=== PATIENT | male | born 1965 | race Caucasian/White ===

== ENCOUNTER 2019-01-07 02:26 | Outpatient (CLI) | payer OTHER, SELFPAY ==
[2019-01-07 09:51] LABS: BUN 14 mg/dL (7-18); CREATININE 0.91 mg/dL (0.70-1.30); Calculated LDL 96 mg/dL; Chloride 105 mmol/L (98-107); Cholesterol 177 mg/dL (50-200); Glucose 91 mg/dL (70-100); HDL Cholesterol 72 mg/dL (40-60); Potassium 4.4 mmol/L (3.5-5.1); Sodium 139 mmol/L (136-145); Triglyceride 48 mg/dL (30-150)
== END 2019-01-07 02:46 ==
PROVIDERS: PCP Family Medicine; Visit Provider Family Medicine
DX: Z00.00 Encounter for general adult medical examination without abnormal findings (principal); Z13.220 Encounter for screening for lipoid disorders; Z13.228 Encounter for screening for other metabolic disorders
CPT/HCPCS: 36415; 80048; 80061

== ENCOUNTER 2019-01-29 01:22 | Outpatient (CLI) | payer OTHER, SELFPAY ==
--- NOTE | 2019-01-29 10:50 | DI.MRI_ITS ---
EXAM: MR LOWER JOINT LT WO CLINICAL HISTORY: CHRONIC PAIN LEFT KNEE. TECHNIQUE: Multiplanar multisequence MRI was performed. COMPARISON: No exams were available for comparison FINDINGS: There is articular cartilage thinning of the central portion of the patellar articular cartilage with subchondral cystic changes noted as well. Slight irregularity of the trochlear articular cartilage contour noted as well. Abnormal signal of trochlear cartilage also noted. No other significant bony signal abnormality is seen. There appears to have been an ACL reconstructi on with intact reconstructed ligament. Mild articular cartilage thinning and irregularity of medial and lateral tibiofemoral joints noted. Presumed chronic complex tear of the body and posterior horn of the medial meniscus noted. Lateral meniscus appears intact. No significant collateral ligament i njury seen. IMPRESSION: 1. Intact ACL reconstruction 2. Degenerative articular cartilage changes of patellofemoral joint, particularly involving the cent ral portion the patellar articular surface. 3. Presumably chronic complex medial meniscal tear. 4. Mild degenerative articular cartilage changes of medial and lateral tibiofemoral joints.
== END 2019-01-29 01:42 ==
PROVIDERS: PCP Family Medicine; Visit Provider Family Medicine
DX: M25.562 Pain in left knee (principal); M17.12 Unilateral primary osteoarthritis, left knee; S83.242A Other tear of medial meniscus, current injury, left knee, initial encounter
CPT/HCPCS: 73721

== ENCOUNTER 2021-04-02 09:29 | Emergency (ER) | payer OTHER, BC, SELFPAY ==
[2021-04-02 09:39] VITALS: BP 142/87; PULSE 70; RESP 16; TEMP 36; O2SAT 99
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
--- NOTE | 2021-04-02 10:30 | DI.RAD_ITS ---
Exam(s) XR RIBS LT W PA LAT CHEST EXAM: XR RIBS LT W PA LAT CHEST CLINICAL HISTORY: fall skiing. TECHNIQUE: 2D digital imaging was performed. COMPARISON: CR RIGHT SHOULDER COMPLETE from 08/29/2017 FINDINGS: Heart size normal. Mediastinum not widened. Lungs are clear. No infiltrates nor pleural effusions. No pneumothorax. No compression fractures evident. Additional views of the left rib cage reveal a nondisplaced fracture of the left 7th rib. IMPRESSION: Left 7th rib fracture. Lungs are clear. No pneumothorax. DATA REPOSITORY: RADIATION DOSE DELIVERED:
--- NOTE | 2021-04-02 10:30 | DI.CT_ITS ---
Exam(s) CT CERVICAL SPINE WO EXAM: CT CERVICAL SPINE WO CLINICAL HISTORY: fall, numbness in RUE. TECHNIQUE: Imaging Protocol: Axial computed tomography images with coronal and sagittal reformatted images were created and reviewed COMPARISON: No exams were available for comparison FINDINGS: CERVICAL SPINE: There is an encircling wire around the spinous process is of C6 and C7 with some fusion at this level . There is a nondisplaced fracture of the right lamina of C6 evident.. This extends to the articular s urface of the ipsilateral facet joint but there is no facet malalignment at this level nor elsewhere in the cervical spinal column. No listhesis at this level. C1 and odontoid are intact as is C2. Some degenerative changes evident in the right facet joint at C 2-3 level. Milder degenerative changes in facet joints at the other levels evident. No jumped facet s. There is annular bulging at 3-4 level. There is no significant facet joint malalignment. No significant osseous lesions evident. IMPRESSION: Right-sided fracture C6 level which extends to the articular surface of the facet joint but without a step nor facet malalignment at this level. No other fractures identified in the cervical vertebrae. Fusion wire posteriorly at C6-7 level noted C6-7 fusion evident. Report called by myself to the ER provider . RADIATION DOSE DELIVERED: 401.23mGy.cm Total DLP DATA REPOSITORY: All CT scans at this facility are submitted to the National Radiology Data Registry (NRDR) Dose Index Registry (DIR) with the [employer] (A[employer]). RADIATION OPTIMIZATION: All CT scans at this facility use at least one of these dose optimization te chniques: automated exposure control; mA and/or kV adjustment per patient size (includes targeted exa ms where dose is matched to clinical indication); or iterative reconstruction.
--- NOTE | 2021-04-02 12:30 | DI.MRI_ITS ---
Exam(s) MR CERVICAL SPINE WO/W EXAM: MR CERVICAL SPINE WO/W CLINICAL HISTORY: right sided fracture, increased numbness in RUE TECHNIQUE: Multiplanar multisequence MRI of the cervical spine was performed without and with intra venous contrast. Contrast injected was 16 mL Dotarem COMPARISON: Cervical spine CT scan from earlier today was reviewed FINDINGS: There is some artifact posteriorly from the cerclage wires around the transverse process is of C6 and C7. CERVICOMEDULLARY JUNCTION: Intact with no evidence of cerebellar tonsillar ectopia. No obvious abnor mality of the odontoid process. No evidence of Chiari 1 malformation. CERVICAL SPINAL CORD: There is no abnormal signal in the cervical spinal cord and no evidence of foca l cord atrophy nor focal cord swelling. OSSEOUS:Please note that there is a fracture in the right lamina of C6 as seen on today's CT scan. T his nondisplaced fracture is less evident on the MRI study . There is minimal if any bone edema, giv en that this is apparently a subacute fracture. INDIVIDUAL LEVELS: C2-3: No disc herniation nor central canal stenosis. Right-sided facet arthropathy evident. Milder facet changes on the left side. Mild right-sided foraminal stenosis. Central canal dimensions at th is level are within normal limits. C3-4: Chronic decreased disc height loss, as well as anterior osseous lipping.There is a posterolater al right disc protrusion at this level which extends posteriorly 2 millimeters and is approximately 8 millimeters wide. Indents the thecal sac but not the cord at this level. There is mild foraminal s tenosis. Central canal dimensions lower normal. C4-5: Preserved disc height. No disc herniation. No central canal stenosis. Moderate bilateral fac et arthropathy and there is moderate bilateral foraminal stenosis noted at this level. C5-6: Preserved disc height. Bilateral small Luschka joint osteophytes. There is no prominent disc herniation. Some degenerative change both facet joints. Mild foraminal stenosis bilaterally. C6-7: Normal disc height. Normal hydration signal. No disc herniation at this level. No central ca nal stenosis. There is fusion posteriorly across the facet joints. No obvious foraminal stenosis. No central canal stenosis at this level. C7-T1: No disc herniation nor central canal stenosis. No facet arthropathy.No foraminal stenosis. IV CONTRAST: No abnormal intraosseous enhancement evident. Also no abnormal enhancement in the epidu ral space nor in cervical spinal cord. IMPRESSION: 1. At C3-4 level there is anterior osseous lipping and some disc space narrowing. In addition to a r ight-sided Luschka joint osteophyte there is also a posterolateral right disc protrusion which extend s posteriorly 2 millimeters and is approximately 7-8 millimeters wide. 2. Please note there is a fracture on the right side of C6 arch, best seen on the CT scan earlier tolissette cervantes and difficult to visualize on this MRI study. 3. Fusion wires noted posteriorly at C6-7 level. There is indeed fusion across both facet joints at this level. DATA REPOSITORY:
[2021-04-02] MEDS: Gadoterate meglumine 20 ML VIAL 10 ML IVP (13:22)
[2021-04-02] MEDS: Normal Saline Flush 10 ML SYR IVP (13:23)
[2021-04-02 14:47] VITALS: BP 145/96; PULSE 78; TEMP 36.6; O2SAT 98
[2021-04-02 17:06] VITALS: BP 133/96; PULSE 79; RESP 16; TEMP 36.7; O2SAT 98
== END 2021-04-02 17:05 | disposition home or self-care (01) ==
PROVIDERS: Emergency Provider Registered Nurse Emergency; PCP Nurse Practitioner
DX: S12.591A Other nondisplaced fracture of sixth cervical vertebra, initial encounter for closed fracture (principal); M54.12 Radiculopathy, cervical region; S22.32XA Fracture of one rib, left side, initial encounter for closed fracture; V00.321A Fall from snow-skis, initial encounter
CPT/HCPCS: 99285; 71046; 71100; 72125; 72156; 99284

== ENCOUNTER 2021-09-29 16:39 | Outpatient (REF) | payer BC, SELFPAY | END 2021-09-29 16:40 | disposition home or self-care (01) | LOC: LBN 16:39 | PROVIDERS: PCP Nurse Practitioner; Visit Provider Physician Assistant | DX: J02.9 Acute pharyngitis, unspecified (principal) | CPT/HCPCS: 87070 ==

== ENCOUNTER 2022-11-23 17:05 | Inpatient (IN) | payer BC, SELFPAY ==
[2022-11-23] VITALS (19 sets, daily range): BP systolic 140–157; BP diastolic 84–96; PULSE 56–69; RESP 18; TEMP 36.9–37.3; O2SAT 92–99
--- NOTE | 2022-11-23 17:15 | RT.EKG_ITS ---
APPROVED REPORT Exam: Resting ECG Reason for Exam: Trauma Patient Location: E HR:55 bpm ECG Measurements Heart Rate 55 AXIS NH 193 P 0 QRSd 96 QRS 15 QT 422 T 28 QTc 405 Conclusion Sinus bradycardia...rate< 60
--- NOTE | 2022-11-23 17:15 | DI.CT_ITS ---
Exam(s) CT CHEST/ABD/PEL W EXAM: CT CHEST/ABD/PEL W CLINICAL HISTORY: Trauma. TECHNIQUE: Imaging Protocol: Axial computed tomography images with coronal and sagittal reformatted images were created and reviewed CONTRAST MATERIAL: Intravenous: Omnipaque 350 Contrast volume:100 ml Oral: None COMPARISON: No exams were available for comparison FINDINGS: CHEST: OSSEOUS: There is a displaced comminuted fracture involving the lateral half of the left clavicle. There is no dislocation of the AC joint. No fracture of the a chromium. There are multiple calcific ations in the subacromial space at this level which are corticated and do not appear to be related to the acute trauma here. There are degenerative changes also evident in the ipsilateral glenohumeral joint without an acute fracture of the humeral head-neck evident. There is a displaced fracture of the posterior aspect of the left 8th rib. There are also minimally displaced fractures of the ipsilateral left 2nd, 3rd, 5th, and 6th ribs.. LUNGS: There is infiltrate in the posterior aspect of the left lower lobe which is probably lung cont usion given the overlying 8th rib fracture. No pleural effusion nor pneumothorax. Milder infiltrate is noted in the posterior basal segment of the right lower lobe, also without pleural effusion or pn eumothorax. There are no obvious right rib fractures. No pneumothorax on either side. No significa nt focal findings in the trachea and mainstem bronchi. There is a thin-walled bulla in the superior segment of the left lower lobe, measuring 1.7 x 1.6 cm and not containing fluid. MEDIASTINUM: No evidence of sternal fracture or mediastinal hematoma. No hilar nor mediastinal adeno july evident. Visualized thyroid unremarkable. CARDIAC: Heart size is normal. There is no pericardial effusion.Thoracic aorta is intact. ABDOMEN: There is no ascites. No evidence of mesenteric nor bowel wall hematoma. LIVER: No evidence of liver laceration nor other incidental findings in the liver. GALLBLADDER/BILIARY: No obvious gallbladder pathology. CBD is not dilated. PANCREAS: There are few focal calcifications in the body of the pancreas. Subtle density abnormality also noted at this level. This require workup. Head and neck of the pancreas appear unremarkable. Small focal hypodensity in the pancreatic tail noted which measures 3 x 2 mm, possibly focal slight prominence of the pancreatic duct at this level. SPLEEN: Normal size. No laceration. Splenic and portal veins are patent. ADRENALS: There are no significant adrenal masses. KIDNEYS: No evidence of renal laceration or subcapsular hematoma. No cysts nor solid masses. No cain culi. No hydronephrosis.. ABDOMINAL AORTA: Intact. No aneurysm. No dissection. No para-aortic hematoma. Aortoiliac segments also intact. LYMPH NODES: There is no retroperitoneal nor paraaortic adenopathy. ABDOMINAL WALL: No evidence of significant anterior abdominal wall nor inguinal hernia. GI: Multiple fluid-filled and mildly dilated small bowel loops-probable ileus. No free air. PELVIS: LYMPH NODES: There is no intrapelvic nor inguinal adenopathy. GI: No evidence of appendicitis.No evidence of sigmoid diverticulitis. URINARY BLADDER: Intact. Mildly distended. No intraluminal clots. No obvious mass. REPRODUCTIVE: Prostate size upper normal. Seminal vesicles unremarkable. OSSEOUS: No evidence of pelvic nor hip fracture. SI joints unremarkable. No vertebral fractures. IMPRESSION: 1. Comminuted displaced fracture of the lateral half of the left clavicle. The AC joint is not dislo cated. Degenerative changes in the ipsilateral left glenohumeral joint as well as multiple calcific densities in the subacromial space which are not related to the acute trauma. 2. Multiple ipsilateral left rib fractures with significantly displaced fracture of the posterior asp ect of the left 8th rib and additional multiple nondisplaced fractures of the lateral aspects of the left 2nd, 3rd, 5th, and 6th ribs. There is no pneumothorax. 3. Posterior left lung infiltrate/contusion. Lesser infiltrate in the opposite-right lung base. No pneumothorax. No pleural effusions. 4. Multiple slightly prominent fluid-filled small bowel loops including terminal ileum; probable ileu s pattern. There is mild haziness of the mesentery but no distinct focal mesenteric nor bowel wall h ematoma evident and there is no ascites. 5. Incidental finding in the body of the pancreas a possible concern. There are focal calcification s in the mid body of the pancreas and very subtle focal hypodensity in this region. Cannot exclude v ajit subtle incidental mass. Recommend follow-up pancreatic imaging. First read by [facility]. Discussed by phone with Dr. Mcdaniel 11/25/2022 8:30 a.m. RADIATION DOSE DELIVERED: 1345.55 mGy.cm Total DLP DATA REPOSITORY: All CT scans at this facility are submitted to the National Radiology Data Registry (NRDR) Dose Index Registry (DIR) with the [employer] ([employer]). RADIATION OPTIMIZATION: All CT scans at this facility use at least one of these dose optimization te chniques: automated exposure control; mA and/or kV adjustment per patient size (includes targeted exa ms where dose is matched to clinical indication); or iterative reconstruction.
--- NOTE | 2022-11-23 17:18 | DI.CT_ITS ---
Exam(s) CT HEAD CERVICAL SPINE WO EXAM: CT HEAD CERVICAL SPINE WO CLINICAL HISTORY: Trauma. TECHNIQUE: Imaging Protocol: Axial computed tomography images with coronal and sagittal reformatted images were created and reviewed COMPARISON: CT CT CERVICAL SPINE WO from 04/02/2021 FINDINGS: BRAIN: There are no skull fractures nor fluid in the visualized paranasal sinuses. There is no evidence of intracranial hemorrhage, mass effect, or shift of midline structures. There are no extra-axial fluid collections. The ventricles are not enlarged or shifted and there is no blo od within the ventricular system nor within the basal cisterns. CERVICAL SPINE: There is no evidence of fracture nor listhesis. No significant prevertebral soft tissue swelling. Fusion wire posteriorly around the spinous process is of C6 and C7. Some fusion is evident at the bi lateral facet joints at this level. Also some fusion anteriorly with preserved disc space height at this level. Some degenerative disc disease seen at multiple levels above this. Significant facet arthropathy not ed at C2-3, more so right side.. There is no significant facet joint malalignment. No significant osseous lesions evident. IMPRESSION: No acute intracranial findings on this noninfused CT scan of the brain. No evidence of cervical spine fracture, malalignment, nor acute compromise of the cervical spinal can al. Posterior fusion wire C6-7 as described above. This was also evident on prior study of March 2021 . At that time this patient had a nondisplaced fracture of the right lamina of C6. RADIATION DOSE DELIVERED: 1,551.74mGy.cm Total DLP DATA REPOSITORY: All CT scans at this facility are submitted to the National Radiology Data Registry (NRDR) Dose Index Registry (DIR) with the [employer] (ACR). RADIATION OPTIMIZATION: All CT scans at this facility use at least one of these dose optimization te chniques: automated exposure control; mA and/or kV adjustment per patient size (includes targeted exa ms where dose is matched to clinical indication); or iterative reconstruction.
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
[2022-11-23] MEDS: HYDROmorphone 2 MG/ML SYR 1 MG IVP ×3 (17:29→22:15)
[2022-11-23] MEDS: Ondansetron 4 MG/2 ML VIAL IVP (17:31)
[2022-11-23 17:34] LABS: Abs Immature Grans 0.05 10^3/uL (0.0-0.06); Absolute Basophil Count 0.06 10^3/uL (0.0-0.2); Absolute Eosinophil Count 0.07 10^3/uL (0.0-0.7); Absolute Lymphocyte Count 1.12 10^3/uL (1.2-3.4); Absolute Monocyte Count 0.53 10^3/uL (0.1-0.8); Absolute Neutrophil Count 6.67 10^3/uL (1.2-6.7); Basophils % 0.7; Eosinophils % 0.8; HCT 43.6 % (40.0-50.0); HGB 14.6 g/dL (13.5-17.5); Immature Grans % 0.6; Lymphocytes % 13.2; MCH 31.5 pg (27.0-33.0); MCHC 33.5 % (32.0-36.0); MCV 94 fL (80-95); Monocytes % 6.2; Neutrophils % 78.5; Platelet Count 237 10^3/uL (130-400); RBC 4.63 10^6/uL (4.36-5.78); RDW 12.3 % (11.8-14.1); RDW-SD 42.7 fL
--- NOTE | 2022-11-23 17:45 | DI.RAD_ITS ---
Exam(s) XR PORTABLE CHEST AP EXAM: XR PORTABLE CHEST AP CLINICAL HISTORY: Trauma TECHNIQUE: 2D digital imaging was performed. COMPARISON: CR XR RIBS LT W PA LAT CHEST from 04/02/2021 FINDINGS: LUNGS: Clear. No pleural abnormality seen. HEART: Normal size. AORTA: Normal diameter. BONES: Comminuted, displaced left clavicle fracture. Question nondisplaced fractures of the lateral left 3rd and 4th ribs. Soft tissues: Unremarkable. IMPRESSION: Left clavicle fracture. Question of nondisplaced left 3rd and 4th rib fractures. No evidence of pne umothorax or pulmonary contusion. DATA REPOSITORY: RADIATION DOSE DELIVERED:
[2022-11-23 17:48] LABS: ALT 26 U/L (16-63); AST 24 U/L (15-37); Albumin 4.2 g/dL (3.4-5.0); Alkaline Phosphatase 80 U/L (46-116); Anion Gap 8.1 mmol/L (3-11); BUN 15 mg/dL (7-18); Bilirubin, Total 0.5 mg/dL (0.2-1.0); CO2 28.9 mmol/L (21.0-32.0); Calcium 8.7 mg/dL (8.5-10.1); Chloride 103 mmol/L (98-107); Estimated GFR 87.24 (mL/min/1.73m2); Glucose 134 mg/dL (74-106); Lipase 23 U/L (16-77); Magnesium 2.1 mg/dL (1.8-2.4); Potassium 3.7 mmol/L (3.5-5.1); Sodium 140 mmol/L (136-145); Total Protein 7.9 g/dL (6.4-8.2); Troponin I < 50 ng/L (<or=60)
[2022-11-23] MEDS: Normal Saline 1,000 ML 150 ML IV ×2 (17:52→21:08)
[2022-11-23] MEDS: Normal Saline - Diluent 50 ML VIAL IJ (18:27)
[2022-11-23] MEDS: Normal Saline Flush 10 ML SYR IVP (18:28)
[2022-11-23] MEDS: Omnipaque 350 MG/ML 100 ML BTL IJ (18:28)
--- NOTE | 2022-11-23 18:31 | DI.CT_ITS ---
Exam(s) CT THORACIC LUMBAR SPINE REC EXAM: CT THORACIC LUMBAR SPINE REC CLINICAL HISTORY: recon T and L spine, Trauma, Back pain TECHNIQUE: COMPARISON: CT CT CHEST/ABD/PEL W from 11/23/2022 FINDINGS: THORACIC SPINAL COLUMN: No evidence of acute fracture nor listhesis. Nonacute in mild wedge compress ion fracture of T5 and slight concavity of superior endplate of T3, also not acute appearing. No sig nificant disc space narrowing. No facet malalignment evident. Left-sided rib fractures as discussed on chest CT report. Also bilateral lower lobe infiltrates. No pneumothorax. LUMBOSACRAL SPINAL COLUMN: No evidence of acute fracture or listhesis. No pars defects. Chronic dis c space narrowing at L5-S1 level noted. Facet arthropathy L4-5 will. Also L3-4. Lucent bone lesion evident in the L5 vertebral body incidentally noted measuring 1.7 cm by 0.8 cm by 1.0 cm. This is n onexpansile and most probably benign as it exhibits a thin peripheral calcified rim. No associated c ortical breakthrough. IMPRESSION: No acute fractures of the thoracic and lumbosacral spinal columns. Nonacute findings at T3 and T5 levels as described above. Benign-appearing bone lesion in the L5 vertebral body incidentally noted.
--- NOTE | 2022-11-23 18:35 | DI.VRAD_ITS ---
PROCEDURE INFORMATION: Exam: XR Chest Exam date and time: 11/23/2022 5:58 PM Age: 57 years old Clinical indication: Other: Loss of vision left eye TECHNIQUE: Imaging protocol: Radiologic exam of the chest. Views: 1 view. COMPARISON: CR XR RIBS LT W PA LAT CHEST 04/02/2021 10:56 AM FINDINGS: Lungs: Unremarkable. No consolidation. Pleural spaces: Unremarkable. No pleural effusion. No pneumothorax. Heart/Mediastinum: Unremarkable. No cardiomegaly. Bones/joints: Comminuted and displaced midshaft left clavicle fracture. Possible minor fracture of the lateral 4th rib left-side.. IMPRESSION: 1. Clear lungs and pleural space. 2. Comminuted and displaced midshaft left clavicle fracture. 3. Possible minor fracture of the lateral aspect of the left 4th rib. Dictated and Authenticated by: Andrew Pena MD. Ordering:ELYSIA Callaway MD
[2022-11-23] MEDS: HYDROmorphone 2 MG/ML SYR 0.5 MG IVP (19:00)
--- NOTE | 2022-11-23 19:36 | NUR.NOTE ---
Nursing Note: Cleaned abrasion on patients left hip with normal saline and dressed it with bacitracin and a band aid.
--- NOTE | 2022-11-23 19:54 | DI.VRAD_ITS ---
PROCEDURE INFORMATION: Exam: CT Chest With Contrast; Diagnostic Exam date and time: 11/23/2022 7:14 PM Age: 57 years old Clinical indication: Injury or trauma; Fall; Generalized; Blunt trauma (contusions or hematomas) TECHNIQUE: Imaging protocol: Diagnostic computed tomography of the chest with contrast. Contrast material: OMNIPAQUE 350; Contrast volume: 100 ml; Contrast route: INTRAVENOUS (IV); COMPARISON: CR XR PORTABLE CHEST AP 11/23/2022 5:58 PM FINDINGS: Lungs: Bilateral posterior lung base atelectasis. No acute infiltrative disease. No lung contusion. Bronchiectasis consistent with COPD. Apical left lower lobe bulla. Pleural spaces: Minor left pleural effusion. No pneumothorax. Heart: Normal heart size. No pericardial effusion. No coronary artery atherosclerotic calcium visible. Lymph nodes: Unremarkable. No enlarged lymph nodes. Vasculature: Thoracic aorta is normal in course and caliber. Diaphragm: Small sliding hiatal hernia. No acute change. Bones/joints: Comminuted fracture of the distal left clavicle. Displaced. AC joint is in alignment. Glenohumeral joint on left side with joint fluid. Periarticular calcifications which could represent calcific tendinitis of the rotator cuff. Can not exclude intra-articular calcification such as synovial osteochondromas. Recommend clinical correlation. No acute fracture of the scapula or proximal humerus. Displaced posterior left 8th rib fracture. Series 5, image 36. No flail segment. Fracture of the anterolateral left 2nd and 3rd ribs without significant displacement. Nondisplaced fracture of the anterolateral left 5th rib and 6th ribs. Soft tissues: Unremarkable. IMPRESSION: 1. Distal left clavicle fracture with comminution and displacement. 2. Posterior bilateral lung atelectatic change. 3. Displaced posterior left 8th rib fracture. Multiple additional nondisplaced left lateral rib fractures at the 2nd, 3rd, 5th, and 6th ribs. 4. Minor left pleural effusion. No pneumothorax. 5. Left glenohumeral joint is in alignment. Calcifications in the region of the superior glenohumeral joint may represent ligamentous or tendinous calcifications from previous trauma or calcific tendinitis. Can not exclude intra-articular synovial osteochondromas. An MRI follow-up of the left shoulder is suggested on a nonemergent basis. PROCEDURE INFORMATION: Exam: CT Abdomen And Pelvis With Contrast Exam date and time: 11/23/2022 7:14 PM Age: 57 years old Clinical indication: Injury or trauma; Fall; Generalized; Blunt trauma (contusions or hematomas) TECHNIQUE: Imaging protocol: Computed tomography of the abdomen and pelvis with contrast. Contrast material: OMNIPAQUE 350; Contrast volume: 100 ml; Contrast route: INTRAVENOUS (IV); COMPARISON: CR XR PORTABLE CHEST AP 11/23/2022 5:58 PM FINDINGS: Liver: The liver is normal in size, contour and attenuation. Gallbladder and bile ducts: Normal. No calcified stones. No ductal dilation. Pancreas: Normal. No ductal dilation. Spleen: The spleen is normal in size, contour and attenuation. Adrenal glands: The adrenal glands are normal in size and contour bilaterally. Kidneys and ureters: The kidneys bilaterally are unremarkable. Normal attenutation. No hydronephrosis. No calculi. Stomach and bowel: Gastric morphology is unremarkable. No edema. No gastric outlet obstruction. Small sliding hiatal hernia. No acute change. Small bowel loops are normal in course and caliber. There is no mucosal edema or bowel wall thickening. No obstructive features. The colon contains formed fecal material. There is no bowel wall thickening. No inflammatory features. No obstruction. Appendix: No evidence of appendicitis. Intraperitoneal space: No free fluid. No free air. Vasculature: Unremarkable. No abdominal aortic aneurysm. Lymph nodes: Unremarkable. No enlarged lymph nodes. Urinary bladder: Urinary bladder is unremarkable in appearance. No wall thickening. No intravesicular calculi. No intravesicular gas. Reproductive: Unremarkable as visualized. Bones/joints: No pelvic fracture or diastasis. No hip fracture or dislocation. Lumbar spine degenerative disease. Soft tissues: Abdominal wall soft tissues are unremarkable. IMPRESSION: 1. No acute findings within the abdomen or pelvis. 2. Degenerative lumbar spine. Dictated and Authenticated by: Andrew Pena MD. Ordering:ELYSIA Callaway MD
--- NOTE | 2022-11-23 19:55 | DI.VRAD_ITS ---
PROCEDURE INFORMATION: Exam: CT Head Without Contrast Exam date and time: 11/23/2022 7:06 PM Age: 57 years old Clinical indication: Injury or trauma; Fall; Blunt trauma (contusions or hematomas); Consciousness not specified TECHNIQUE: Imaging protocol: Computed tomography of the head without contrast. Total images: [id number] COMPARISON: MR CERVICAL SPINE WO/W 04/02/2021 1:04 PM FINDINGS: Brain: No intra or extra axial bleed. No edema or mass effect. The central dillon structures and cortical ribbon are maintained. Cerebral ventricles: No hydrocephalus. Basal cisterns are patent. Paranasal sinuses: No mucosal thickening or fluid levels. Mastoid air cells: Mastoid air cells are clear. Orbital cavities: Punctate senescent scleral calcification versus old foreign body on the right. Bones/joints: No significant bony abnormality. No fracture. Soft tissues: Unremarkable. IMPRESSION: 1. No acute intracranial abnormality. 2. No intracerebral bleed. PROCEDURE INFORMATION: Exam: CT Cervical Spine Without Contrast Exam date and time: 11/23/2022 7:06 PM Age: 57 years old Clinical indication: Injury or trauma; Fall; Blunt trauma (contusions or hematomas); Consciousness not specified TECHNIQUE: Imaging protocol: Computed tomography of the cervical spine without contrast. COMPARISON: MR CERVICAL SPINE WO/W 04/02/2021 1:04 PM FINDINGS: Bones/joints: No acute fracture. No subluxation. Disc space narrowing at C3-C4 and C4-C5 associated with spondylotic central and foraminal stenosis. Wires involving posterior elements at C6 and C7. Fusion of the facets at that level. Spinal epidural space: No epidural hematoma. Auditory system: Cerumen left external auditory canal. Lungs: No apical pneumothorax. Soft tissues: Unremarkable. IMPRESSION: 1. No acute fracture. 2. Degenerative disc disease. Dictated and Authenticated by: Dequan Calzada MD. Ordering:ELYSIA Callaway MD
--- NOTE | 2022-11-23 19:59 | DI.VRAD_ITS ---
PROCEDURE INFORMATION: Exam: CT Thoracic Spine Without Contrast Exam date and time: 11/23/2022 7:14 PM Age: 57 years old Clinical indication: Injury or trauma; Fall; Blunt trauma (contusions or hematomas) TECHNIQUE: Imaging protocol: Computed tomography of the thoracic spine without contrast. COMPARISON: CT HEAD CERVICAL SPINE WO 11/23/2022 7:06 PM FINDINGS: Bones/joints: No acute compression fractures. Multilevel degenerative thoracic spine changes. Mild dextroscoliosis. Chronic appearing mild anterior wedging of T6. Small Schmorl's node on the inferior aspect of T9. Paravertebral soft tissues are unremarkable. Displaced posterior left 9th rib fracture. Displaced comminuted distal left clavicle fracture. Soft tissues: Paravertebral soft tissues are unremarkable. Lungs: Bilateral posterior lung base atelectasis. Pleural spaces: Minor left pleural effusion. IMPRESSION: 1. No acute thoracic spine fracture or dislocation. 2. Old mild anterior wedge compression fracture of T6. 3. Displaced posterior left 9th rib fracture. 4. Left clavicle fracture. PROCEDURE INFORMATION: Exam: CT Lumbar Spine Without Contrast Exam date and time: 11/23/2022 7:14 PM Age: 57 years old Clinical indication: Injury or trauma; Fall; Blunt trauma (contusions or hematomas) TECHNIQUE: Imaging protocol: Computed tomography of the lumbar spine without contrast. COMPARISON: No relevant prior studies available. FINDINGS: Bones/joints: No acute fracture. Normal alignment. No significant disc bulge or herniation. Moderate spinal stenosis changes at L3-L4 and L4-L5.. No significant neural foraminal narrowing. Severe degenerative disc space narrowing at L5-S1. Multilevel severe facet degeneration. Soft tissues: Unremarkable. IMPRESSION: 1. Degenerative lumbar spine changes. 2. No acute fracture or dislocation. Dictated and Authenticated by: Andrew Pena MD. Ordering:ELYSIA Callaway MD
[2022-11-23] MEDS: Melatonin 3 MG TAB 5 MG PO (22:13)
[2022-11-23] MEDS: Gabapentin 300 MG CAP PO (22:14)
[2022-11-23] MEDS: Ketorolac 30 MG/ML VIAL IVP (22:14)
[2022-11-23] MEDS: Cyclobenzaprine 10 MG TAB 5 MG PO (22:14)
[2022-11-24] VITALS: PULSE 63
[2022-11-24] MEDS: Cyclobenzaprine 10 MG TAB 5 MG PO ×2 (03:35→10:13)
[2022-11-24] MEDS: HYDROmorphone 2 MG/ML SYR 1 MG IVP ×2 (03:35→10:24)
[2022-11-24 03:52] VITALS: BP 126/78; PULSE 68; RESP 18; TEMP 37; O2SAT 97
[2022-11-24 07:02] VITALS: PULSE 59
[2022-11-24] MEDS: Gabapentin 300 MG CAP PO (07:46)
--- NOTE | 2022-11-24 08:00 | DI.RAD_ITS ---
Exam(s) XR CHEST 2V PA LATERAL EXAM: XR CHEST 2V PA LATERAL CLINICAL HISTORY: re-eval. TECHNIQUE: 2D digital imaging was performed. COMPARISON: CR,XR XR PORTABLE CHEST AP from 11/23/2022 FINDINGS: 2 views: Heart size is normal. The mediastinum is not widened. There is now some infiltrate in the right lower lobe posterior basal segment and a small right pleura l effusion. There also appears to be possible developing infiltrate in the left lower lobe, similar location. Left clavicle fracture again noted. IMPRESSION: Bilateral lower lobe infiltrates now evident. Also small right pleural effusion. Left clavicle fracture. DATA REPOSITORY: RADIATION DOSE DELIVERED:
--- NOTE | 2022-11-24 09:03 | W.ANESPRE ---
General Info Date of Service Date Performed: 11/24/22 Height: 5 ft 9 in Weight: 60 kg Body Mass Index (BMI): 19.5 Meds Allergies and Home Medications Allergies Allergy/AdvReac Type Severity Reaction Status Date / Time No Known Allergies Allergy Unverified 11/23/22 17:20 Home Medication Medication Instructions Recorded mupirocin 2 % topical ointment 1 applic topical BID #22 grams 09/25/21 melatonin 5 mg capsule 5 mg PO HS PRN 08/28/22 cyclobenzaprine 5 mg tablet 5 mg PO HS PRN muscle spasm #15 09/03/22 tab-caps doxycycline hyclate 100 mg tablet 200 mg PO ONCE #2 tabs 09/03/22 magnesium 250 mg tablet 250 mg PO DAILY #90 tabs 09/03/22 tadalafil 20 mg tablet (Cialis) 20 mg PO DAILY PRN sexual activity 09/03/22 #30 tabs Current Visit Medications: Current Medications Generic Name Dose Route Start Last Admin Trade Name Freq PRN Reason Stop Dose Admin Acetaminophen 650 mg 11/23/22 21:35 Acetaminophen 325 Mg Tab PO Q4H PRN PRN Pain or Fever Albuterol Sulfate 2.5 mg 11/23/22 20:28 Albuterol 2.5 Mg/3 Ml Inh Soln Vial UPD Q2H PRN PRN Cyclobenzaprine HCl 5 mg 11/23/22 22:00 11/24/22 03:35 Cyclobenzaprine 10 Mg Tab PO 5 mg Q6H BEENA Administration Gabapentin 300 mg 11/23/22 22:00 11/24/22 07:46 Gabapentin 300 Mg Cap PO 300 mg TID BEENA Administration Hydromorphone HCl 1 mg 11/23/22 20:33 11/24/22 03:35 Hydromorphone 2 Mg/Ml Syr IVP 1 mg Q4H PRN PRN Administration IV Miscellaneous Supplies 1 each 11/23/22 17:30 Iv Access-Emergency Dept IV DIRECTED COUNT INCLUDES THE [facility] IV Miscellaneous Supplies 1 each 11/23/22 20:30 Iv Access-Emergency Dept IV DIRECTED COUNT INCLUDES THE [facility] Iohexol 100 ml 11/23/22 18:30 11/23/22 18:28 Omnipaque 350 Mg/Ml 100 Ml Btl IJ 12/23/22 23:59 100 ml DIRECTED COUNT INCLUDES THE [facility] Administration Ketorolac Tromethamine 30 mg 11/23/22 21:37 11/23/22 22:14 Ketorolac 30 Mg/Ml Vial IVP 11/28/22 21:36 30 mg Q6H PRN PRN Administration Pain Melatonin 5 mg 11/23/22 22:00 11/23/22 22:13 Melatonin 3 Mg Tab PO 5 mg HS BEENA Administration Ondansetron HCl 4 mg 11/23/22 20:28 Ondansetron 4 Mg/2 Ml Vial IVP Q4H PRN PRN Oxycodone HCl 5 mg 11/23/22 21:33 Oxycodone 5 Mg Tab PO Q6H PRN PRN Pain Sodium Chloride 0 ml 11/23/22 17:18 11/23/22 18:28 Normal Saline Flush 10 Ml Syr IVP 10 ml PRN PRN Administration Sodium Chloride 50 ml 11/23/22 18:30 11/23/22 18:27 Normal Saline - Diluent 50 Ml Vial IJ 50 ml .FOR DI USE BEENA Administration Sodium Chloride 0 ml 11/23/22 20:28 Normal Saline Flush 10 Ml Syr IVP PRN PRN PFSH Active Problems Active Problems: Problem Status Onset Code Trauma T14.90XA Multiple fractures of ribs of left side S22.42XA Closed displaced fracture of left clavicle S42.002A Pleural effusion on left J90 Anxiety and depression F41.9, F32.A Tendon nodule M67.90 Erectile dysfunction N52.9 Attention-deficit hyperactivity disorder, unspecified type 09/29/12 F90.9 Medical History Medical History Alcohol use Bunionette of right foot C6 cervical fracture 03/2021 Cervical radiculopathy at C6 03/2021 Incomplete rotator cuff tear or rupture of left shoulder, not specified as traumatic (11/03/15) Meralgia paresthetica Smokeless tobacco use Surgical History Surgical History ACHILLES REPAIR (~04/2013) RIGHT Arthroplasty of knee (~1986) History of arthroscopy of knee Rotator Cuff Repair (~1984) LEFT Spinal Fusion (~1984) C6 AND C7 FUSION Status post Achilles tendon repair Status post cervical spinal arthrodesis Status post rotator cuff repair Tobacco Smoking/Tobacco Use Status: Current every day Tobacco Type: smokeless tobacco Smokeless tobacco user: chewing tobacco and snus Passive smoking exposure: No Second hand exposure: No Alcohol Alcohol Intake: former Substance Use Substance use: Occasionally Substance use type: marijuana Vital Signs and Lab Results Vital Signs Most Recent Vital Signs in EMR: Most Recent Vital Signs Temp Pulse Resp BP Pulse Ox 37 C 59 L 18 126/78 97 11/24/22 03:52 11/24/22 07:02 11/24/22 03:52 11/24/22 03:52 11/24/22 03:52 Lab Results 11/23/22 17:15 11/23/22 17:15 Blood Type / Crossmatch: No Data to Display Complete Blood Count: White Blood Count 8.50 10^3/uL (4.4-10.8) 11/23/22 17:15 Red Blood Count 4.63 10^6/uL (4.36-5.78) 11/23/22 17:15 Hemoglobin 14.6 g/dL (13.5-17.5) 11/23/22 17:15 Hematocrit 43.6 % (40.0-50.0) 11/23/22 17:15 Platelet Count 237 10^3/uL (130-400) 11/23/22 17:15 Complete Metabolic Panel: Sodium 140 mmol/L (136-145) 11/23/22 17:15 Potassium 3.7 mmol/L (3.5-5.1) 11/23/22 17:15 Chloride 103 mmol/L (98-107) 11/23/22 17:15 Carbon Dioxide 28.9 mmol/L (21.0-32.0) 11/23/22 17:15 BUN 15 mg/dL (7-18) 11/23/22 17:15 Creatinine 1.0 mg/dL (0.70-1.30) 11/23/22 17:15 Est GFR (CKD-EPI 2020) 87.24 (mL/min/1.73m2) 11/23/22 17:15 Magnesium 2.1 mg/dL (1.8-2.4) 11/23/22 17:15 Calcium 8.7 mg/dL (8.5-10.1) 11/23/22 17:15 Albumin 4.2 g/dL (3.4-5.0) 11/23/22 17:15 Glucose 134 mg/dL (74-106) H 11/23/22 17:15 Liver Function Panel: Alanine Aminotransferase (ALT/SGPT) 26 U/L (16-63) 11/23/22 17:15 Aspartate Amino Transf (AST/SGOT) 24 U/L (15-37) 11/23/22 17:15 Coagulation Panel: No Data to Display Cardiac Panel: Troponin I < 50 ng/L (<or=60) 11/23/22 Arterial Blood Gas: No Data to Display Venous Blood Gas: No Data to Display Pancreas Panel: Lipase 23 U/L (16-77) 11/23/22 17:15 Thyroid Panel: No Data to Display Infectious Disease: No Data to Display Blood Cultures: No Data to Display Toxicology Panel: No Data to Display Anesthesia Assessment and Plan Anesthesia History Personal History: No History of Anesthesia Complications Family History: No Family History of Anesthesia Complications Exercise Tolerance Exercise Tolerance: Metabolic Equivalents>4 Pertinent Negatives Pertinent Negatives: No Symptoms of GERD Cardiac & Pulmonary Exam Cardiac Exam: Normal S1/S2 Heart Sounds Pulmonary Exam: Clear Bilateral Breath Sounds Implantable Cardiac Device Does patient have a Pacemaker or an ICD?: No Airway Exam Known Difficult Airway: No Mallampati Class: 1 Mouth Opening: Normal (> 3cm) Thyromental Distance: Greater than 3 cm Neck Range of Motion: Full ROM Neck Circumference: Normal Teeth Condition: Normal Dentition ASA Classification ASA Score: ASA 1 Emergency Case?: No NPO Status NPO Status: Full Stomach Anesthesia Plan Resuscitation Status: Full Code Anesthesia Technique: Primary Nerve Block Airway Planned: Natural Airway Monitors Used: Standard Monitors
[2022-11-24 09:05] VITALS: BMI 19.5
[2022-11-24 09:36] VITALS: PULSE 81
--- NOTE | 2022-11-24 09:45 | PDOC.CMIN ---
Date of service: 11/24/22 Time of Service: 09:45 Care Management Initial Assmt Initial Assessment REASON FOR HOSPITALIZATION:: multiple rib and clavicular fractures PREVIOUS FUNCTIONAL STATUS/SOCIAL/FAMILY SUPPORTS:: Shade lives in [place], [place]. 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 He is active and independent at baseline. ADVANCE DIRECTIVES:: none on file Has patient been provided with info about the portal/API?: Yes Did the patient sign up for the portal?: Yes CODE STATUS:: Full Code INSURANCE COVERAGE / FINANCIAL ISSUES:: [employer] [place] PRIMARY CARE PHYSICIAN:: Laura Solorzano POTENTIAL DISCHARGE NEEDS:: follow up with orthopedics, PCP and plan of care PATIENT/FAMILY EDUCATION NEEDS:: Review of discharge instructions, activity, limitations, follow up plan, discuss Ask Me Three ANTICIPATED BARRIERS TO DISCHARGE:: pain control TRANSPORTATION:: via private vehicle with family PLAN:: Anticipate Shade will discharge home with no new services. He will follow up with community providers and plan of care and transport with family. CM will follow and support discharge needs. PFSH All Active Problems (Updated 11/23/22 @ 20:38 by Cesia Rodriguez NP) Trauma (Acute) Multiple fractures of ribs of left side (Acute) Closed displaced fracture of left clavicle (Acute) Pleural effusion on left (Acute) Anxiety and depression (Chronic) Tendon nodule (Acute) Erectile dysfunction (Acute) Attention-deficit hyperactivity disorder, unspecified type (Chronic 09/29/12) On no ;medicines Medical History Alcohol use Bunionette of right foot C6 cervical fracture 03/2021 Cervical radiculopathy at C6 03/2021 Incomplete rotator cuff tear or rupture of left shoulder, not specified as traumatic (11/03/15) Meralgia paresthetica Smokeless tobacco use Surgical History ACHILLES REPAIR (~04/2013) RIGHT Arthroplasty of knee (~1986) History of arthroscopy of knee Rotator Cuff Repair (~1984) LEFT Spinal Fusion (~1984) C6 AND C7 FUSION Status post Achilles tendon repair Status post cervical spinal arthrodesis Status post rotator cuff repair Family History Mother Hypertension Father , age 62 Heart disease Stroke Sister No problems noted. Brother Alcohol abuse Depression Brother Alcohol abuse Brother Alcohol abuse Depression Substance abuse Son No problems noted. Son Asthma Social History Smoking/Tobacco Use Status: Current every day Tobacco Type: smokeless tobacco Tobacco: How many years used: 30 Smokeless tobacco user: chewing tobacco and snus Quit status: not considering quitting Second Hand Exposure: No Smoking risk assessment performed?: Yes Alcohol Intake: former Drug use: Occasionally Substance use type: marijuana Caregiver/Support person: No Household members: children Housing: house Communication Needs: None Do you need help understanding health information?: Rarely Pets and animals: Yes Pets and animals: cat(s) Sexually active: Yes Do you think of yourself as: straight/heterosexual Current gender identity: male What is your relationship status?: How often do you talk on the phone with friends or family?: once per week How often do you get together with friends or relatives?: once per week How often do you attend anglican or mormonism services?: decline to answer Do you belong to any clubs or organized social groups?: no Panel score (0-1 are the most socially isolated patients): 0 What type of physical activity do you participate in: bicycling and other Details: skiing Duration: 45-60 minutes/day Frequency: 5-6 times per week Ros/Episcopal: Spiritual Special ros needs: No Seatbelt use: always Helmet use: Yes Helmet use: always 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
--- NOTE | 2022-11-24 10:10 | ANES.NERVE_ITS ---
Nerve Block Single Injection Procedure Date and Time Date Performed: 11/24/22 Procedure Start: 09:38 Location Where Procedure Performed Procedure Location: Med/Surg (Room 215) Reason Performed: Acute Pain Management Pain Diagnosis: Rib Pain (Non-displaced rib fractures: T2, T3, T5 & T6. Displaced rib fracture: T8) Requesting Provider: Mary Mcdaniel Timeout Performed Timeout Performed: Yes Monitoring Used ECG, Blood Pressure and SpO2 Sterility Sterility: Hand Hygiene, Surgical Cap, Surgical Mask, Sterile Gloves, Eye Protection and Chlorhexidine Sedation Given During Procedure Sedation Given (Indicate Dose Given): No Sedation given Patient Mental Status Patient Mental Status: Awake Nerve Block 1st Nerve Block: Laterality: Left Block Type: Erector Spinae (Upper) (T5) Ultrasound Image Saved?: Yes Needle / Catheter Used: 100mm SonoPlex II Local Anesthetic Bolus (Indicate Dose Given): Lidocaine used for local infiltration of skin, Injected in 3-5ml increments after negative blood aspiration, Bupivacaine 0.25% Dose:: 0.25% (10cc), 25mg and Exparel Dose:: 1.3% (10cc), 133mg Additives (Indicate Dose Given): Epinephrine to make 1:200,000 (5mcg/ml) Dose:: Epi. 100mcg (5mcg/cc) Ultrasound: Sterile probe cover and gel used Nerve Stimulator: Not Used Paresthesia: None Procedure Tolerated: No Complications Procedure Outcome: Successful Performed By: Armando Bliss Other (not listed above): Massimo Jang CRNA 2nd Nerve Block: Laterality: Left Block Type: Erector Spinae (Upper) (T8) Ultrasound Image Saved?: Yes Needle / Catheter Used: 100mm SonoPlex II Local Anesthetic Bolus (Indicate Dose Given): Lidocaine used for local infiltration of skin, Injected in 3-5ml increments after negative blood aspiration, Bupivacaine 0.25% Dose:: 0.25%/5cc (12.5mg) and Exparel Dose:: 1.3%/10cc (133mg) Additives (Indicate Dose Given): Epinephrine to make 1:200,000 (5mcg/ml) Dose:: Epi. 75mcg (5mcg/cc) Ultrasound: Sterile probe cover and gel used Nerve Stimulator: Not Used Paresthesia: None Procedure Tolerated: No Complications Procedure Outcome: Successful Performed By: Armando Bliss Other (not listed above): Massimo Jang, PRIVATE DETECTIVE
[2022-11-24] MEDS: Ketorolac 30 MG/ML VIAL IVP (10:25)
[2022-11-24] MEDS: Normal Saline Flush 10 ML SYR IVP (10:25)
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
--- NOTE | 2022-11-24 11:08 | DI.VRAD_ITS ---
PROCEDURE INFORMATION: Exam: XR Chest Exam date and time: 11/24/2022 11:04 AM Age: 57 years old Clinical indication: Other: Re eval TECHNIQUE: Imaging protocol: Radiologic exam of the chest. Views: 2 views. COMPARISON: CT CHEST/ABD/PEL W 11/23/2022 7:14 PM FINDINGS: Lungs: No airspace disease or lung consolidation. Atelectasis present bilateral lung bases Pleural spaces: Blunting of the costophrenic angles consistent with small pleural effusions. Heart/Mediastinum: Unremarkable. No cardiomegaly. Bones/joints: Unremarkable. IMPRESSION: Bilateral lower lobe atelectasis. Dictated and Authenticated by: Lior Foster MD. Ordering:ELYSIA Callaway MD
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
[2022-11-24 11:31] VITALS: BP 133/94; PULSE 63; RESP 20; TEMP 36.8; O2SAT 96
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
== END 2022-11-24 12:45 | disposition home or self-care (01) | DRG 184 ==
LOC: ER 21:01 → MS 21:33
PROVIDERS: Admitting Provider Surgery; Emergency Provider Registered Nurse Emergency; PCP Nurse Practitioner Family; Visit Provider Surgery
DX: S22.42XA Multiple fractures of ribs, left side, initial encounter for closed fracture (principal); J90 Pleural effusion, not elsewhere classified; J98.11 Atelectasis; S42.022A Displaced fracture of shaft of left clavicle, initial encounter for closed fracture; W17.89XA Other fall from one level to another, initial encounter; Y93.55 Activity, bike riding; F41.8 Other specified anxiety disorders; F90.9 Attention-deficit hyperactivity disorder, unspecified type; Z98.1 Arthrodesis status; F17.290 Nicotine dependence, other tobacco product, uncomplicated; F12.90 Cannabis use, unspecified, uncomplicated
CPT/HCPCS: 36415; 74177; 80053; 83690; 93005; 96361; 96374; 96375; 99285; 70450; 71045; 71046; 71260; 72125; 83735; 84484; 85025; 93010; J0171; J1170; J1885; J2405; J3490

== ENCOUNTER 2022-11-26 10:51 | Outpatient (CLI) | payer BC, SELFPAY ==
--- NOTE | 2022-11-26 10:30 | DI.RAD_ITS ---
Exam(s) XR CLAVICLE LT EXAM: XR CLAVICLE LT INDICATION: left clavicle fracture. COMPARISON: CR RIGHT CLAVICLE from 01/10/2017 CR,XR XR PORTABLE CHEST AP from 11/23/2022 CR,XR XR CHEST 2V PA LATERAL from 11/24/2022 TECHNIQUE: 2D digital imaging was performed. Two views. FINDINGS: There has been no change in the alignment of the comminuted clavicle fracture. Chronic appearing cain cifications are noted above the glenoid humeral joint. AC joint is not widened. DATA REPOSITORY: RADIATION DOSE DELIVERED:
== END 2022-11-26 10:52 | disposition home or self-care (01) ==
LOC: DIORS 10:52
PROVIDERS: PCP Nurse Practitioner Family; Referring Provider Nurse Practitioner Family; Visit Provider Student in an Organized Health Care Education/Training Program
DX: S42.022D Displaced fracture of shaft of left clavicle, subsequent encounter for fracture with routine healing (principal); X58.XXXD Exposure to other specified factors, subsequent encounter
CPT/HCPCS: 73000

== ENCOUNTER 2022-11-28 08:27 | Day surgery (SDC) | payer BC, SELFPAY ==
[2022-11-28] VITALS (11 sets, daily range): BP systolic 123–141; BP diastolic 83–95; PULSE 62–82; RESP 14–20; TEMP 36.3–36.8; O2SAT 93–99; BMI 25.6
--- NOTE | 2022-11-28 08:59 | ANES.PREOP_ITS ---
General Info Date of Service Date Performed: 11/28/22 Height: 5 ft 9 in Weight: 78.8 kg Body Mass Index (BMI): 25.6 Surgical Procedure: Operation Date: 11/28/22 10:40 Proposed Procedure Side Surgeon p Shoulder ORIF Clavicle Left Anuel Shields MD Meds Allergies and Home Medications Allergies Allergy/AdvReac Type Severity Reaction Status Date / Time No Known Allergies Allergy Unverified 11/28/22 08:33 Home Medication Medication Instructions Recorded mupirocin 2 % topical ointment 1 applic topical BID #22 grams 09/25/21 melatonin 5 mg capsule 5 mg PO HS PRN 08/28/22 magnesium 250 mg tablet 250 mg PO DAILY #90 tabs 09/03/22 tadalafil 20 mg tablet (Cialis) 20 mg PO DAILY PRN sexual activity 09/03/22 #30 tabs cyclobenzaprine 10 mg tablet 5 mg PO TID #90 tabs 11/24/22 famotidine 40 mg tablet 40 mg PO DAILY #30 tabs 11/24/22 gabapentin 300 mg capsule 300 mg PO TID 14 days #42 caps 11/24/22 hydromorphone 2 mg tablet 2 mg PO Q4H PRN PRN #20 tabs 11/24/22 ibuprofen 600 mg tablet 600 mg PO Q6H PRN #60 tabs 11/24/22 acetaminophen 500 mg tablet 500 mg PO PRN PRN 11/28/22 Current Visit Medications: Current Medications Generic Name Dose Route Start Last Admin Trade Name Freq PRN Reason Stop Dose Admin Ringer's Solution 1,000 mls @ 30 mls/hr 11/28/22 06:00 IV 11/28/22 16:00 INFUSION BEENA Cefazolin Sodium/Dextrose 2 gm in 50 mls @ 100 mls/hr 11/28/22 06:00 Ancef Duplex IVPB 11/28/22 23:59 PREOP BEENA IV Miscellaneous Supplies 1 each 11/28/22 06:00 Iv Access IV 11/28/22 23:59 DIRECTED BEENA Oxycodone HCl 0 mg 11/28/22 07:20 Oxycodone 5 Mg Tab PO 12/28/22 07:19 Q3H PRN PRN Pain Sodium Chloride 0 ml 11/28/22 06:00 Normal Saline Flush 10 Ml Syr IV 11/28/22 23:59 PRN PRN Sodium Chloride 0 ml 11/28/22 06:00 Normal Saline 10 Ml Vial IJ 11/28/22 23:59 DIRECTED PRN Sterile Water 0 ml 11/28/22 06:00 Water,Injection,Sterile 10 Ml Vial IJ 11/28/22 23:59 DIRECTED PRN PFSH Active Problems Active Problems: Problem Status Onset Code Abnormal CT of the abdomen R93.5 Trauma T14.90XA Multiple fractures of ribs of left side S22.42XA Closed displaced fracture of left clavicle 11/23/22 S42.002A Pleural effusion on left J90 Anxiety and depression F41.9, F32.A Tendon nodule M67.90 Erectile dysfunction N52.9 Attention-deficit hyperactivity disorder, unspecified type 09/29/12 F90.9 Medical History Medical History Alcohol use Bunionette of right foot C6 cervical fracture 03/2021 Cervical radiculopathy at C6 03/2021 Incomplete rotator cuff tear or rupture of left shoulder, not specified as traumatic (11/03/15) Meralgia paresthetica Smokeless tobacco use Surgical History Surgical History ACHILLES REPAIR (~04/2013) RIGHT Arthroplasty of knee (~1986) History of arthroscopy of knee Rotator Cuff Repair (~1984) LEFT Spinal Fusion (~1984) C6 AND C7 FUSION Status post Achilles tendon repair Status post cervical spinal arthrodesis Status post rotator cuff repair Tobacco Smoking/Tobacco Use Status: Current every day Tobacco Type: smokeless tobacco Smokeless tobacco user: chewing tobacco and snus Passive smoking exposure: No Second hand exposure: No Alcohol Alcohol Intake: current Alcohol intake frequency: a few times a week Substance Use Substance use: Occasionally Substance use type: marijuana Details: last tobacco chew at 4 pm 11/27/22 alcohol t-2 marijuana t-7 Vital Signs and Lab Results Vital Signs Most Recent Vital Signs in EMR: Most Recent Vital Signs Temp Pulse Resp BP Pulse Ox 36.7 C 69 16 136/95 H 99 11/28/22 08:38 11/28/22 08:38 11/28/22 08:38 11/28/22 08:38 11/28/22 08:38 Lab Results Blood Type / Crossmatch: No Data to Display Complete Blood Count: White Blood Count 8.50 10^3/uL (4.4-10.8) 11/23/22 17:15 Red Blood Count 4.63 10^6/uL (4.36-5.78) 11/23/22 17:15 Hemoglobin 14.6 g/dL (13.5-17.5) 11/23/22 17:15 Hematocrit 43.6 % (40.0-50.0) 11/23/22 17:15 Platelet Count 237 10^3/uL (130-400) 11/23/22 17:15 Complete Metabolic Panel: Sodium 140 mmol/L (136-145) 11/23/22 17:15 Potassium 3.7 mmol/L (3.5-5.1) 11/23/22 17:15 Chloride 103 mmol/L (98-107) 11/23/22 17:15 Carbon Dioxide 28.9 mmol/L (21.0-32.0) 11/23/22 17:15 BUN 15 mg/dL (7-18) 11/23/22 17:15 Creatinine 1.0 mg/dL (0.70-1.30) 11/23/22 17:15 Est GFR (CKD-EPI 2020) 87.24 (mL/min/1.73m2) 11/23/22 17:15 Magnesium 2.1 mg/dL (1.8-2.4) 11/23/22 17:15 Calcium 8.7 mg/dL (8.5-10.1) 11/23/22 17:15 Albumin 4.2 g/dL (3.4-5.0) 11/23/22 17:15 Glucose 134 mg/dL (74-106) H 11/23/22 17:15 Liver Function Panel: Alanine Aminotransferase (ALT/SGPT) 26 U/L (16-63) 11/23/22 17: 15 Aspartate Amino Transf (AST/SGOT) 24 U/L (15-37) 11/23/22 17:15 Coagulation Panel: No Data to Display Cardiac Panel: Troponin I < 50 ng/L (<or=60) 11/23/22 Arterial Blood Gas: No Data to Display Venous Blood Gas: No Data to Display Pancreas Panel: Lipase 23 U/L (16-77) 11/23/22 17:15 Thyroid Panel: No Data to Display Infectious Disease: No Data to Display Blood Cultures: No Data to Display Toxicology Panel: No Data to Display Anesthesia Assessment and Plan Anesthesia History Personal History: No History of Anesthesia Complications Family History: No Family History of Anesthesia Complications Exercise Tolerance Exercise Tolerance: Metabolic Equivalents>4 Pertinent Negatives Pertinent Negatives: No Symptoms of GERD Cardiac & Pulmonary Exam Cardiac Exam: Normal S1/S2 Heart Sounds Pulmonary Exam: Clear Bilateral Breath Sounds Implantable Cardiac Device Does patient have a Pacemaker or an ICD?: No Airway Exam Known Difficult Airway: No Mallampati Class: 1 Mouth Opening: Normal (> 3cm) Thyromental Distance: Greater than 3 cm Neck Range of Motion: Full ROM Neck Circumference: Normal Teeth Condition: Normal Dentition ASA Classification ASA Score: ASA 2 Emergency Case?: No NPO Status NPO Status: NPO Clears >2 hours, Solids >8 hours Anesthesia Plan Resuscitation Status: Full Code Anesthesia Technique: General Anesthesia Airway Planned: Endotracheal Tube Monitors Used: Standard Monitors
[2022-11-28] MEDS: Lactated Ringers 1,000 ML 30 ML IV (09:25)
--- NOTE | 2022-11-28 09:46 | ROE_ITS ---
Date of service: 11/28/22 Time of Service: 09:46 Operative Note Operative Note DATE OF PROCEDURE: 11/28/22 PRE-OP DIAGNOSIS: Left displaced clavicle fracture PROCEDURE: Left clavicle open reduction internal fixation, CPT #53278 SURGEON: Anuel Shields HYDRAULIC BOOM OPERATOR: Torrie Brice ANESTHESIA TYPE: Local By Surgeon, General LMA/ETT and Primary Nerve Block Refer to Anesthesia Record ESTIMATED BLOOD LOSS: 10 COMPLICATIONS: None Patient was transported to: PACU Implants: Synthes 2.7mm VA LCP clavicle plate system LEFT CS2 midshaft plate with 4x lateral & 4x medial 2.7mm locking screws, 1x medial 2.7mm cortex screw Indications: Please see complete medical record for details. Procedure Description: In the operating room, general anesthesia was induced. The patient was positioned supine on the operating room table. All bony prominences were well- padded. Preoperative antibiotics were administered. The clavicle was prepped and draped in the usual sterile fashion. The correct patient, procedure, and side of the procedure were all verified prior to incision. The planned incision was pre-injected with bupivacaine containing epinephrine. The fracture site was approached raising full-thickness flaps down to bone. The incision was extended medially laterally as necessary. Laterally, the incision was maintained more superior to avoid the pre-existing open incision that spanned from the acromion to the coracoid and prevent a suture bridge that was too small of the incisions did converge most laterally, which was felt to be safe as the prior incision was done 30 years ago. Care was taken to preserve soft tissue attachments to the medial lateral fracture ends as well as to the l arge medial anterior inferior and posterior segmental pieces. The fracture ends were identified. A couple small devitalized pieces of comminution were removed. Bone forceps were used to provisionally obtain reduction. Suture tape cerclage was used to secure with a Nice knot the large anterior inferior bony fragment to the lateral fragment as it contained the CC ligaments. Various precontoured superior plates were applied and a mid shaft plate spun around the lateral to medial had the best fit and screw options. It was secured provisionally medial and laterally to the fracture with bicortical cortex screww. The medial most aspect of the plate was slightly proud to the bone so the screws and plate were removed. The medial most edge of the plate was bent to sit and reapplied wrapping nicely onto the medial superior aspect of the clavicle. The plate and provisional cortex screws were reapplied with excellent fit. An additional cortex screw was placed most medial and lateral to further compress plate to the bone. Remaining medial and lateral locking screws were predrilled and filled with bicortical locking screws. The medial and lateral most cortex screws were switched to appropriate length locking screws for added security. The initial lateral cortex screw was also changed to a locking screw. The plate and fractures were all inspected and demonstrated excellent stability and fixation strength. AP, cephalic tilt, and [id number] fluoroscopy confirmed appropriate fracture reduction, screw lengths, and hardware placement. The wound was copiously irrigated with normal saline. Deep and subcutaneous tissue was closed in a full-thickness watertight fashion with buried interrupted 2-0 Monocryl. Subcuticular layer was closed using running 3-0 Monocryl. Skin glue was applied over the incision followed by a Mepilex Band-Aid. The patient awoke from anesthesia without complication and was transferred to the recovery room in a stable condition.
--- NOTE | 2022-11-28 09:46 | W.PM.DSUDISC ---
Date of service: 11/28/22 Time of Service: 12:00 Discharge Plan Disposition Patient Disposition: Home Condition: Stable Discharge Details Attending Provider: Anuel Shields Primary Care Provider: Laura Solorzano Home Meds and New Rx's Prescriptions: New naproxen 250 mg tablet 250 - 500 mg PO BID PRNQty: 40 0RF Rx Instructions: take with a meal oxycodone 5 mg tablet 5 - 10 mg PO Q4H MDD 30 mg PRN (Reason: moderate to severe pain) Qty: 18 0RF Continued magnesium 250 mg tablet 250 mg PO DAILY Qty: 90 1RF tadalafil [Cialis] 20 mg tablet 20 mg PO DAILY PRN (Reason: sexual activity) Qty: 30 5RF Rx Instructions: administer approximately 30min before sexual activity; do not use more than 1 dose per 24hrs mupirocin 2 % ointment 1 applic topical BID Qty: 22 0RF melatonin 5 mg capsule 5 mg PO HS PRN cyclobenzaprine 10 mg Tablet 5 mg PO TID Qty: 90 0RF gabapentin 300 mg Capsule 300 mg PO TID 14 Days Qty: 42 0RF famotidine 40 mg tablet 40 mg PO DAILY Qty: 30 0RF acetaminophen 500 mg Tablet 500 mg PO PRN PRN Discontinued hydromorphone 2 mg Tablet 2 mg PO Q4H PRN PRNQty: 20 0RF ibuprofen 600 mg tablet 600 mg PO Q6H PRNQty: 60 0RF Discharge Instructions Additional Instructions: Surgery: Left clavicle ORIF Activity: Nonweightbearing left upper extremity. Use sling for support when up and about or out of the home for about 1 month. Encourage gentle passive and active range of motion about the shoulder, elbow, wrist and hand to prevent stiffness. A physical therapy prescription will be provided separately in the office at follow-up. Prescriptions: Naproxen 250 mg take 1-2 every 12 hours with a meal as needed for moderate pain (do not use at same time as ibuprofen) Oxycodone 5 mg take 1-2 every 4-6 hours as needed for severe pain (do not use at same time as hydromorphone) You may use kail-zus-jmbohyz Tylenol (acetaminophen) as needed for mild pain. These pain medications may be taken all at once or in different combinations as needed. Also, recommend Colace (docusate) as a stool softener as surgery and pain medicine cause constipation. You may try btnn-ojy-bhlaiog diphenhydramine (Benadryl) 25-50 mg nightly as a sleep aid Dressings: Leave bandage in place until follow-up. Please keep clean and dry at all times. Follow-up: 10-[address] Shields You may take off the leg compression stockings this evening at home. You may also leave them on a few days longer if you have a history of leg swelling or edema. Let us know right away if you develop any redness, drainage, fevers, chest pain, or trouble breathing. Do not drink alcohol or drive for at least 24 hours after anesthesia. Please call the office during business hours with any questions or concerns. Stand Alone Forms: Anesthesia Discharge Inst., Armin.Nerve Block Instructions, Justin Myrick ([facility]) Discharge Orders Discharge Orders: Discharge Order (Routine); Ordered 11/28/22 Ordered By: Anuel Shields DS: Diagnosis Discharge Diagnosis (1) Closed displaced fracture of left clavicle: Status: Acute
[2022-11-28] MEDS: ceFAZolin 2 GM/50 ML BAG IVPB (09:48)
--- NOTE | 2022-11-28 10:27 | W.ANESNERVE ---
Nerve Block Single Injection Procedure Date and Time Date Performed: 11/28/22 Procedure Start: 09:37 Location Where Procedure Performed Procedure Location: Day Surgery Unit Reason Performed: Postoperative Analgesia Requesting Provider: Anuel Shields Timeout Performed Timeout Performed: Yes Monitoring Used ECG, Blood Pressure, SpO2 and See EMR for corresponding vital signs Sterility Sterility: Hand Hygiene, Surgical Cap, Surgical Mask, Sterile Gloves, Eye Protection and Chlorhexidine Sedation Given During Procedure Sedation Given (Indicate Dose Given): Versed IV Dose:: 2mg Patient Mental Status Patient Mental Status: Sedate with meaningful communication Nerve Block 1st Nerve Block: Laterality: Left Block Type: Superficial Cervical Plexus Ultrasound Image Saved?: Yes Needle / Catheter Used: 80mm SonoPlex II Local Anesthetic Bolus (Indicate Dose Given): Lidocaine used for local infiltration of skin (2%/1cc) and Ropivacaine 0.5% Dose:: 0.5%/8cc (45mg) Additives (Indicate Dose Given): Epinephrine to make 1:200,000 (5mcg/ml) Dose:: 45mcg Ultrasound: Sterile probe cover and gel used Nerve Stimulator: Not Used Paresthesia: None Procedure Tolerated: No Complications and Patient tolerated well Procedure Outcome: Successful Performed By: Armando Bliss
[2022-11-28] MEDS: Bupivacaine 0.5% Pres-Free W/EPI 30 ML VIAL IJ (10:32)
--- NOTE | 2022-11-28 11:52 | DI.RAD_ITS ---
Exam(s) XR CLAVICLE LT EXAM: XR CLAVICLE LT CLINICAL HISTORY: left clavicle fracture. TECHNIQUE: 2D and realtime digital imaging was performed. COMPARISON: CR XR CLAVICLE LT from 11/26/2022 FINDINGS: Hard copy images show placement of a fixation plate across the clavicle for fracture fixation. The a lignment is now anatomic. Please see procedure note for details. Fluoro time: 24seconds RADIATION DOSE DELIVERED: venkat Baldwin=1.54 mGy
[2022-11-28] MEDS: HYDROmorphone 2 MG/ML SYR IVP (13:00)
[2022-11-28] MEDS: fentaNYL 100 MCG/2 ML VIAL IVP (13:13)
--- NOTE | 2022-11-28 13:24 | W.ANESPOSTOP ---
Postoperative Evaluation Date, Time and Location Date Performed: 11/28/22 Time Performed: 13:25 Patient Location: PACU Vital Signs Most Recent Imported Vital Signs: Most Recent Vital Signs Temp Pulse Resp BP Pulse Ox 36.6 C 65 14 128/88 93 11/28/22 13:18 11/28/22 13:18 11/28/22 13:18 11/28/22 13:18 11/28/22 13:18 Pain Score Most Recent Pain Score: Most Recent Pain Score Pain Level 4 11/28/22 13:18 Assessment Mental Status: Arousable with meaningful communication Airway and Respiratory Function: Patent airway with normal (patient baseline) respiratory exam Cardiovascular Function: Hemodynamically Stable Hydration Status: Adequately Hydrated Nausea & Vomiting: No Nausea or Vomiting Pain: Pain is tolerable per patient Peripheral Nerve Block: Regional nerve block not resolved at time of post operative discharge
--- NOTE | 2022-11-28 14:23 | W.ANESPOSTOP ---
Postoperative Evaluation Date, Time and Location Date Performed: 11/28/22 Time Performed: 14:24 Patient Location: Day Surgery Unit Vital Signs Most Recent Imported Vital Signs: Most Recent Vital Signs Temp Pulse Resp BP Pulse Ox 36.3 C L 67 18 134/91 H 96 11/28/22 14:11 11/28/22 14:11 11/28/22 14:11 11/28/22 14:11 11/28/22 14:11 Most Recent Vital Signs Temp Pulse Resp BP Pulse Ox 36.6 C 65 14 128/88 93 11/28/22 13:18 11/28/22 13:18 11/28/22 13:18 11/28/22 13:18 11/28/22 13:18 Pain Score Most Recent Pain Score: Most Recent Pain Score Pain Level 2 11/28/22 14:11 Assessment Mental Status: Awake (Alert & Oriented to Patient Baseline) Airway and Respiratory Function: Patent airway with normal (patient baseline) respiratory exam Cardiovascular Function: Hemodynamically Stable Hydration Status: Adequately Hydrated Nausea & Vomiting: No Nausea or Vomiting Pain: Pain is tolerable per patient Peripheral Nerve Block: Regional nerve block not resolved at time of post operative discharge
== END 2022-11-28 14:45 | disposition home or self-care (01) ==
PROVIDERS: PCP Nurse Practitioner Family; Visit Provider Student in an Organized Health Care Education/Training Program
PROC: (CPT 23515; principal; 2022-11-28 10:30)
DX: S42.002A Fracture of unspecified part of left clavicle, initial encounter for closed fracture (principal); F10.90 Alcohol use, unspecified, uncomplicated; G57.10 Meralgia paresthetica, unspecified lower limb; F17.290 Nicotine dependence, other tobacco product, uncomplicated; S42.022A Displaced fracture of shaft of left clavicle, initial encounter for closed fracture; V19.3XXA Pedal cyclist (driver) (passenger) injured in unspecified nontraffic accident, initial encounter
CPT/HCPCS: 23515; 76942; 73000; J0690; J1100; J1170; J1885; J2001; J2250; J2405; J2704; J3010

== ENCOUNTER 2022-12-10 09:06 | Outpatient (CLI) | payer BC, SELFPAY ==
--- NOTE | 2022-12-10 08:15 | DI.RAD_ITS ---
Exam(s) XR CHEST 1V IN DI DEPT XR CLAVICLE LT EXAM: XR CHEST 1V IN DI DEPT CLINICAL HISTORY: rib fx f/u TECHNIQUE: 2D digital imaging was performed. COMPARISON: CR,XR XR CHEST 2V PA LATERAL from 11/24/2022 CR XR CLAVICLE LT from 11/26/2022 CR XR CLAVICLE LT from 12/10/2022 FINDINGS: LUNGS: Clear. No pleural abnormality seen. HEART: Normal size. AORTA: Normal diameter. BONES: Fixation plate is again noted across the distal clavicle for fracture fixation. The alignment is unchanged. There are minimally displaced fractures of the left 2nd through 5th ribs, visible on the clavicle films. Soft tissues: Unremarkable. IMPRESSION: Stable appearance of left clavicle and left upper rib fractures. No acute findings. DATA REPOSITORY: RADIATION DOSE DELIVERED:
== END 2022-12-10 09:07 | disposition home or self-care (01) ==
LOC: DIORS 09:06
PROVIDERS: PCP Nurse Practitioner Family; Referring Provider Nurse Practitioner Family; Visit Provider Student in an Organized Health Care Education/Training Program
DX: S22.42XD Multiple fractures of ribs, left side, subsequent encounter for fracture with routine healing (principal); S42.022D Displaced fracture of shaft of left clavicle, subsequent encounter for fracture with routine healing; X58.XXXD Exposure to other specified factors, subsequent encounter
CPT/HCPCS: 71045; 73000

== ENCOUNTER 2023-01-07 08:38 | Outpatient (CLI) | payer BC, SELFPAY ==
--- NOTE | 2023-01-07 08:30 | DI.RAD_ITS ---
Exam(s) XR CLAVICLE LT EXAM: XR CLAVICLE LT INDICATION: left clavicle f/u. COMPARISON: CR XR CLAVICLE LT from 12/10/2022 TECHNIQUE: 2D digital imaging was performed. Two views. FINDINGS: There is no change in the fracture or hardware alignment. There is continued healing at the clavicle fracture. No new abnormalities. DATA REPOSITORY: RADIATION DOSE DELIVERED:
== END 2023-01-07 08:39 | disposition home or self-care (01) ==
LOC: DIORS 08:39
PROVIDERS: PCP Nurse Practitioner Family; Visit Provider Student in an Organized Health Care Education/Training Program
DX: S42.022D Displaced fracture of shaft of left clavicle, subsequent encounter for fracture with routine healing (principal); X58.XXXD Exposure to other specified factors, subsequent encounter; Z98.890 Other specified postprocedural states
CPT/HCPCS: 73000

== ENCOUNTER 2023-01-23 06:16 | Day surgery (SDC) | payer BC, SELFPAY ==
--- NOTE | 2023-01-22 19:34 | W.PM.DSUDISC ---
Date of service: 01/23/23 Time of Service: 08:00 Discharge Plan Disposition Patient Disposition: Home Condition: Good Discharge Details Reason For Visit: screening colonoscopy Attending Provider: Elias Solo Primary Care Provider: Laura Solorzano Home Meds and New Rx's Prescriptions: Continued magnesium 250 mg tablet 250 mg PO DAILY Qty: 90 1RF mupirocin 2 % ointment 1 applic topical BID Qty: 22 0RF melatonin 5 mg capsule 5 mg PO HS PRN tadalafil [Cialis] 20 mg tablet 20 mg PO DAILY PRN (Reason: sexual activity) Qty: 30 5RF Rx Instructions: administer approximately 30min before sexual activity; do not use more than 1 dose per 24hrs cyclobenzaprine 10 mg Tablet 5 mg PO TID Qty: 90 0RF acetaminophen 500 mg Tablet 500 mg PO PRN PRN Discontinued bisacodyl [Dulcolax (bisacodyl)] 5 mg tablet,delayed release (DR/EC) 5 mg PO ONCE Qty: 4 0RF Rx Instructions: Take per colonoscopy instructions provided by ordering providers office polyethylene glycol 3350 17 gram/dose powder 17 g PO ONCE Qty: 238 0RF Rx Instructions: Take per colonoscopy instructions provided by ordering providers office Discharge Instructions Instructions: Colorectal Polyps (GEN) Additional Instructions: Shade, You were able to complete your colonoscopy today without any difficulties at all. The quality of your prep was excellent. I did find 3 small polyps which explain the positive Cologuard test. I removed all of these polyps without any difficulty. I will take a week or so for me to get the results that describe the nature of the polyps, and I will be in touch at that point with any other recommendations. If you have any questions in the meantime, please do not hesitate to call at any point. 1. If tolerated, consume a soft, low fiber diet for 1-2 days. 2[address] Do not drive, drink alcohol, operate machinery, make critical decisions, or do activities that require coordination or balance for 24 hours. 3. Because air was put into your colon during the procedure, expelling air from your rectum (passing gas or farting) is normal. 4. You may not have a bowel movement for 1-3 days because of the colonoscopy prep. This is normal. 5. Go directly to the emergency room if you notice any of the following: Develop chills (warm to touch), or if you have a thermometer and your temperature is above 101 Difficulty breathing or difficultly swallowing Persistent vomiting Severe abdominal pain, other than gas cramps Severe chest pain Black, tarry stools Any bleeding ? exceeding one tablespoon 6. Call your physician if the site where your intravenous was started becomes red, swollen, painful, and warm to touch. 7. Your physician has reviewed your pre-procedure medications. Please continue to take those medications as previously ordered. You will be given specific information/education regarding any changes to your medications before leaving. Activity:: Activity as Tolerated Diet:: As Tolerated Discharge Orders Discharge Orders: Discharge Order (Routine); Ordered 01/22/23 Ordered By: Elias Solo DS: Diagnosis Discharge Diagnosis (1) Screen for colon cancer: Status: Acute Asessment and Plan: I will follow-up on polypectomy results
--- NOTE | 2023-01-22 19:41 | W.COLOREPORT ---
Date of service: 01/23/23 Time of Service: 08:01 Colonoscopy Report Date of procedure: 01/23/23 Pre-op diagnosis general: Screening colonocsopy Post-op diagnosis procedure note: other (Colon polyps) Procedure: Colonoscopy with polypectomy Surgeon: Elias Solo Anesthesia Type: General:No Airway Estimated blood loss (mL): 10 Pathology: other (0.25 cm polyp at 95 cm, 0.25 cm polyps at 25 cm x 2) Complications: None Disposition: same day Indications: Shade is a 57 year old man who had a positive cologuard test. He is here for a following up screening colonoscopy Prep: Miralax/Dulcolax Procedure Start Time: 07:34 Procedure End Time: 07:51 Retraction Time: 13 Findings: 3.25 cm polyp at 95 cm, 0.25 cm polyps at 25 cm x 2 Procedure Description: After the induction of monitored anesthetic care, and with the patient in left lateral decubitus position, I began by performing an external anorectal exam.? Perineum and skin were normal, as was the anal verge.? There was no evidence of external hemorrhoids.? Next, I performed a digital rectal exam.? I did not appreciate any abnormal findings.? Next, I advanced a colonoscope into the rectal vault.? I performed retroflexion.? This appeared normal.? Using insufflation, I then advanced the colonoscope beyond the rectal folds and into the sigmoid colon before advancing towards the cecum.? The quality of the prep was outstanding.? The scope was noted to be in the cecum by identification of the ileocecal valve and appendiceal orifice.? I then began withdrawing the colonoscope using repeated irrigation as necessary for full evaluation of the colonic mucosa. Around 95 cm from the anal verge I identified a 0.25 cm polyp. ?It appeared sessile in character. ?I was able to remove this with a cold forceps. ?I examined the site, and there was minimal bleeding. ?Once this was completed, I continued to withdraw the scope and examine the remainder of the colonic mucosa.? Similarly, around 25 cm from the anus were 2 other polyps. Each was less than 0.25 cm. Both of these were removed with cold forceps, with minimal bleeding at the sites. Once the scope was withdrawn to the level of the rectum, great care was taken to examine portions of the rectal folds.? Finally, the scope was withdrawn and the patient was brought to the same-day surgery recovery unit as the anesthetic wore off. ?The findings and instructions were shared with the patient prior to discharge.
[2023-01-23 06:26] VITALS: BP 125/93; PULSE 70; RESP 18; TEMP 36.2; O2SAT 98
[2023-01-23] MEDS: Lactated Ringers 1,000 ML 80 ML IV (06:44)
--- NOTE | 2023-01-23 07:10 | W.ANESPRE ---
General Info Date of Service Date Performed: 01/23/23 Height: 5 ft 9 in Weight: 76.2 kg Body Mass Index (BMI): 24.7 Surgical Procedure: Operation Date: 01/23/23 07:35 Proposed Procedure Side Surgeon maurice Solo MD Meds Allergies and Home Medications Allergies Allergy/AdvReac Type Severity Reaction Status Date / Time No Known Allergies Allergy Verified 01/23/23 06:33 Home Medication Medication Instructions Recorded mupirocin 2 % topical ointment 1 applic topical BID #22 grams 09/25/21 melatonin 5 mg capsule 5 mg PO HS PRN 08/28/22 magnesium 250 mg tablet 250 mg PO DAILY #90 tabs 09/03/22 cyclobenzaprine 10 mg tablet 5 mg PO TID #90 tabs 11/24/22 acetaminophen 500 mg tablet 500 mg PO PRN PRN 11/28/22 tadalafil 20 mg tablet (Cialis) 20 mg PO DAILY PRN sexual activity 01/20/23 #30 tabs Current Visit Medications: Current Medications Generic Name Dose Route Start Last Admin Trade Name Freq PRN Reason Stop Dose Admin Hyoscyamine Sulfate 0.125 mg 01/22/23 19:42 Hyoscyamine 0.125 Mg Sl/Oral/Chew SL 02/21/23 19:41 DIRECTED PRN Ringer's Solution 1,000 mls @ 80 mls/hr 01/23/23 06:00 01/23/23 06:44 IV 01/23/23 23:59 80 mls/hr INFUSION BEENA Administration IV Miscellaneous Supplies 1 each 01/23/23 06:00 Iv Access IV 01/23/23 23:59 DIRECTED BEENA Ondansetron HCl 4 mg 01/22/23 19:42 Ondansetron 4 Mg/2 Ml Vial IVP 02/21/23 19:41 Q4H PRN PRN Nausea / Vomiting Sodium Chloride 0 ml 01/23/23 06:00 Normal Saline Flush 10 Ml Syr IV 01/23/23 23:59 PRN PRN Sodium Chloride 0 ml 01/23/23 06:00 Normal Saline 10 Ml Vial IJ 01/23/23 23:59 DIRECTED PRN Sterile Water 0 ml 01/23/23 06:00 Water,Injection,Sterile 10 Ml Vial IJ 01/23/23 23:59 DIRECTED PRN PFSH Active Problems Active Problems: Problem Status Onset Code Screen for colon cancer Z12.11 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 Pancreatic mass K86.89 Screening for malignant neoplasm of colon performed Z12.[address] of the abdomen R93.5 Trauma T14.90XA Multiple fractures of ribs of left side S22.42XA Closed displaced fracture of left clavicle 11/23/22 S42.002A Pleural effusion on left J90 Anxiety and depression F41.9, F32.A Tendon nodule M67.90 Erectile dysfunction N52.9 Attention-deficit hyperactivity disorder, unspecified type 09/29/12 F90.9 Medical History Medical History Alcohol use Bunionette of right foot C6 cervical fracture 03/2021 Cervical radiculopathy at C6 03/2021 Incomplete rotator cuff tear or rupture of left shoulder, not specified as traumatic (11/03/15) Meralgia paresthetica Smokeless tobacco use Surgical History Surgical History ACHILLES REPAIR (~04/2013) RIGHT Arthroplasty of knee (~1986) History of arthroscopy of knee Rotator Cuff Repair (~1984) LEFT Spinal Fusion (~1984) C6 AND C7 FUSION Status post Achilles tendon repair Status post cervical spinal arthrodesis Status post rotator cuff repair Tobacco Smoking/Tobacco Use Status: Current every day Tobacco Type: smokeless tobacco Smokeless tobacco user: chewing tobacco and snus Passive smoking exposure: No Second hand exposure: No Alcohol Alcohol Intake: current Alcohol intake frequency: 3 or more drinks per day Alcohol type: beer Substance Use Substance use: Occasionally Substance use type: marijuana Details: pt. chew tobacco, last time was yesterday Vital Signs and Lab Results Vital Signs Most Recent Vital Signs in EMR: Most Recent Vital Signs Temp Pulse Resp BP Pulse Ox 36.2 C L 70 18 125/93 H 98 01/23/23 06:26 01/23/23 06:26 01/23/23 06:26 01/23/23 06:26 01/23/23 06:26 Lab Results Blood Type / Crossmatch: No Data to Display Complete Blood Count: No Data to Display Complete Metabolic Panel: No Data to Display Liver Function Panel: No Data to Display Coagulation Panel: No Data to Display Cardiac Panel: No Data to Display Arterial Blood Gas: No Data to Display Venous Blood Gas: No Data to Display Pancreas Panel: No Data to Display Thyroid Panel: No Data to Display Infectious Disease: No Data to Display Blood Cultures: No Data to Display Toxicology Panel: No Data to Display Anesthesia Assessment and Plan Anesthesia History Personal History: No History of Anesthesia Complications Family History: No Family History of Anesthesia Complications Exercise Tolerance Exercise Tolerance: Metabolic Equivalents>4 Pertinent Negatives Pertinent Negatives: No Symptoms of GERD, No Major Cardiovascular Symptoms or Complaints and No Major Pulmonary Symptoms or Complaints Cardiac & Pulmonary Exam Cardiac Exam: Normal S1/S2 Heart Sounds Pulmonary Exam: Clear Bilateral Breath Sounds Implantable Cardiac Device Does patient have a Pacemaker or an ICD?: No Airway Exam Known Difficult Airway: No Mallampati Class: 1 Mouth Opening: Normal (> 3cm) Thyromental Distance: Greater than 3 cm Neck Range of Motion: Full ROM Neck Circumference: Normal Teeth Condition: Normal Dentition ASA Classification ASA Score: ASA 2 Emergency Case?: No NPO Status NPO Status: NPO Clears >2 hours, Solids >8 hours Anesthesia Plan Resuscitation Status: Full Code Anesthesia Technique: General Anesthesia Airway Planned: Natural Airway Monitors Used: Standard Monitors
[2023-01-23 07:11] VITALS: BMI 24.7
--- NOTE | 2023-01-23 07:45 | BOWEL_PTH ---
PATIENT: Shade Hickey LOC: [facility] U#:[id number] AGE/SX: 57/M ROOM: RE01/23/[address]: Elias Solo MD : [id number] BED: DIS: 01/23/2023 SPEC #: [id number] RECD: 01/23/23 12:58 STATUS: MARIO RE #: [id number] LAMAR: 01/23/23 07:[address]: Elias Solo DEPT: Surgical Specimen RECD BY: Shyla Patton ENTERED: 01/23/23 12:59 SP TYPE: Bowel OTHR DR: Laura Solorzano, TATIANA Tissues: 1 - BIOPSY BOWEL 2 - BIOPSY BOWEL Procedures: GROSS AND MICRO LEVEL 4 Comments: [id number]
[2023-01-23 07:58] VITALS: BP 121/85; PULSE 63; RESP 20; TEMP 36.4; O2SAT 97
--- NOTE | 2023-01-23 08:23 | W.ANESPOSTOP ---
Postoperative Evaluation Date, Time and Location Date Performed: 01/23/23 Time Performed: 08:05 Patient Location: Day Surgery Unit Vital Signs Most Recent Imported Vital Signs: Most Recent Vital Signs Temp Pulse Resp BP Pulse Ox 36.4 C L 63 20 121/85 97 01/23/23 07:58 01/23/23 07:58 01/23/23 07:58 01/23/23 07:58 01/23/23 07:58 Pain Score Most Recent Pain Score: Most Recent Pain Score Pain Level 0 01/23/23 07:58 Assessment Mental Status: Awake (Alert & Oriented to Patient Baseline) Airway and Respiratory Function: Patent airway with normal (patient baseline) respiratory exam Cardiovascular Function: Hemodynamically Stable Hydration Status: Adequately Hydrated Nausea & Vomiting: No Nausea or Vomiting Pain: Pt. Denies Any Pain Peripheral Nerve Block: Patient did not receive a nerve block
[2023-01-23 08:27] VITALS: BP 123/82; PULSE 61; RESP 16; TEMP 36.2; O2SAT 100
== END 2023-01-23 09:16 | disposition home or self-care (01) ==
PROVIDERS: PCP Nurse Practitioner Family; Visit Provider Surgery
PROC: 0DJD8ZZ Inspection of Lower Intestinal Tract, Via Natural or Artificial Opening Endoscopic (ICD-10-PCS; CPT 45378; principal; 2023-01-23 07:30)
DX: Z12.11 Encounter for screening for malignant neoplasm of colon (principal); D12.3 Benign neoplasm of transverse colon; R19.5 Other fecal abnormalities
CPT/HCPCS: 45380; 88305

== ENCOUNTER → 2023-01-28 00:11 | Outpatient (CLI) | payer BC, SELFPAY ==
--- NOTE | 2023-01-28 06:30 | DI.MRI_ITS ---
Exam(s) MR ABDOMEN WO/W EXAM: MR ABDOMEN WO/W CLINICAL HISTORY: abnormal CT scan,PANCREATIC MASS, K86.89 TECHNIQUE: Multiplanar multisequence MRI of the Abdomen was performed. CONTRAST MATERIAL: IV Contrast: 16 mL of Dotarem contrast administered. COMPARISON: CT CT THORACIC LUMBAR SPINE REC from 11/23/[address] CHEST/ABD/PEL W from 11/23/[address] ABDOMEN WO/W from 12/19/2022 FINDINGS: Liver: Unremarkable. Pancreas: Unremarkable. No mass or cyst. No ductal dilatation. No inflammation. Gallbladder and Bile Ducts: Unremarkable. Adrenals: Unremarkable. Kidneys: Unremarkable. Spleen: Unremarkable. Aorta: Unremarkable. Soft Tissues: Unremarkable. Bone: Unremarkable. Lymph Nodes: Unremarkable. IMPRESSION: Normal MR of the Abdomen. No evidence of pancreatic mass or cyst. DATA REPOSITORY:
[2023-01-28] MEDS: Normal Saline - Diluent 50 ML VIAL IJ (09:08)
[2023-01-28] MEDS: Gadoterate meglumine 20 ML VIAL IVP (09:08)
== END ==
PROVIDERS: PCP Nurse Practitioner Family; Visit Provider Surgery
DX: K86.89 Other specified diseases of pancreas (principal)
CPT/HCPCS: 74183

== ENCOUNTER 2023-02-18 08:38 | Outpatient (CLI) | payer BC, SELFPAY ==
--- NOTE | 2023-02-18 08:39 | DI.RAD_ITS ---
Exam(s) XR CLAVICLE LT EXAM: XR CLAVICLE LT CLINICAL HISTORY: F/U FRACTURE TECHNIQUE: 2D digital imaging was performed. Two views COMPARISON: CR XR CLAVICLE LT from 01/07/2023 FINDINGS: There has been continued healing at the clavicle fracture. There is no change in fracture or hardwar e alignment. DATA REPOSITORY: RADIATION DOSE DELIVERED:
== END 2023-02-18 08:39 | disposition home or self-care (01) ==
LOC: DIORS 08:38
PROVIDERS: PCP Nurse Practitioner Family; Visit Provider Student in an Organized Health Care Education/Training Program
DX: S42.002D Fracture of unspecified part of left clavicle, subsequent encounter for fracture with routine healing (principal); X58.XXXD Exposure to other specified factors, subsequent encounter
CPT/HCPCS: 73000

== ENCOUNTER 2024-08-25 01:39 | Outpatient (CLI) | payer BC, SELFPAY ==
[2024-08-25 12:11] LABS: HCT 42.7 % (40.0-50.0); HGB 14.5 g/dL (13.5-17.5); MCH 32.1 pg (27.0-33.0); MCV 95 fL (80-95); MPV 10.6 fL (8.0-11.0); Platelet Count 205 10^3/uL (130-400); RBC 4.52 10^6/uL (4.36-5.78); RDW 12.3 % (11.8-14.1); RDW-SD 42.7 fL; WBC 4.17 10^3/uL (4.4-10.8)
[2024-08-25 12:39] LABS: ALT 26 U/L (16-63); AST 19 U/L (15-37); Albumin 3.8 g/dL (3.4-5.0); Alkaline Phosphatase 80 U/L (46-116); Anion Gap 5.6 mmol/L (3-11); BUN 16 mg/dL (7-18); Bilirubin, Total 0.5 mg/dL (0.2-1.0); CO2 29.4 mmol/L (21.0-32.0); Calculated LDL 91 mg/dL (<100); Chloride 109 mmol/L (98-107); Cholesterol 170 mg/dL (<200); Glucose 95 mg/dL (74-106); HDL Cholesterol 72 mg/dL (>or=40); Potassium 4.2 mmol/L (3.5-5.1); Sodium 144 mmol/L (136-145); TSH (W/Ref FT4) 0.81 uIU/mL (0.36-3.74); Total Protein 7.1 g/dL (6.4-8.2); Triglyceride 38 mg/dL (<150)
[2024-08-25 13:40] LABS: Hemoglobin A1C 5.5 % (<5.7)
[2024-08-25 18:54] LABS: PSA, Screening 1.5 ng/mL (<=3.5)
== END 2024-08-25 01:40 | disposition home or self-care (01) ==
PROVIDERS: PCP Nurse Practitioner Family; Visit Provider Nurse Practitioner Family
DX: Z00.00 Encounter for general adult medical examination without abnormal findings (principal); Z12.5 Encounter for screening for malignant neoplasm of prostate
CPT/HCPCS: 36415; 80053; 80061; 84153; 85027; 83036; 84443